=== PATIENT | female | born 1985 | race Caucasian/White ===

== ENCOUNTER 2019-09-04 13:27 | Emergency (ER) | payer OTHER, SELFPAY ==
[2019-09-04 13:34] VITALS: BP 133/75; PULSE 111; RESP 24; TEMP 37.4; O2SAT 100
--- NOTE | 2019-09-04 13:51 | DI.US.S_ITS ---
PROCEDURE: US PELVIC COMPLETE INDICATIONS: SEVERE PELVIC PAIN TECHNIQUE: Real-time scanning was performed of the pelvic organs, with image documentation. Additional endovaginal scanning was necessary due to incomplete visualization of the adnexal and endometrial structures by transabdominal scanning. COMPARISON: None. FINDINGS: Transabdominal scanning: Limited scanning through the kidneys shows no hydronephrosis. No pathologic free abdominal or pelvic fluid. Endovaginal scanning: Uterus: The uterus is normal in size and measures 7.5 x 3.1 x 4.5 cm. There is a small heterogeneous structure identified along the anterior wall of the uterus to the right of midline, which is hypoechoic compared to the adjacent parenchyma and is located within the central aspect of the myometrium, compatible with an intramural fibroid. No additional myometrial lesions are identified. A trilaminar appearance of the endometrium is identified, which measures up to 7 mm in maximal combined thickness. No significant fluid is seen within the endometrium. The cervix is unremarkable. Ovaries: The right ovary measures 3.9 x 2.3 x 3.4 cm, which is enlarged related to a simple appearing 2.9 cm right ovarian cyst. Blood flow is demonstrated to the right ovary. The left ovary is normal in size and appearance, containing small ovarian follicles. The left ovary measures 3.5 x 1.8 x 1.8 cm. No cystic or solid left ovarian lesions are identified. IMPRESSION: 1. Simple appearing small right ovarian cyst (2.9 cm). 2. Small intramural uterine fibroid. 3. Unremarkable left ovary. Dictated by: Je Michel M.D. on 09/04/2019 at 14:22 Approved by: Je Michel M.D. on 09/04/2019 at 14:24
[2019-09-04 14:30] LABS: Add Manual Diff / Slide Review NO; Basophils Absolute Auto 100 /uL (0-100); Basophils Percent Auto 0.6 % (0-2); Eosinophils Absolute Auto 100 /uL (0-450); Eosinophils Percent Auto 1.3 % (2-4); Hematocrit 37.4 % (36-46); Hemoglobin 12.9 g/dL (12.0-16.0); Lymphocytes Absolute Auto 2000 /uL (1100-4500); Lymphocytes Percent Auto 21.2 % (25-40); Mean Corpuscular HGB Conc 34.4 % (30-36); Mean Corpuscular Hemoglobin 29.6 PG (26-34); Mean Corpuscular Volume 86.1 fL (80-100); Monocytes Absolute Auto 600 /uL (0-900); Neutrophils Absolute Auto 6700 /uL (1500-7000); Neutrophils Percent Auto 70.9 % (50-75); Platelet Count 384 X10^3/uL (150-400); Red Blood Cell Count 4.35 X10^6/uL (4.0-5.2); Red Cell Distribution Width 12.9 % (11.6-14.8); White Blood Cell Count 9.5 X10^3/uL (4.5-11.0)
[2019-09-04] MEDS: SODIUM CHLORIDE 0.9% 1,000 ML 1000 ML IV (14:35)
[2019-09-04] MEDS: MORPHINE 4 MG/ML INJ IV ×2 (14:35→15:45)
[2019-09-04] MEDS: ONDANSETRON 4 MG/2 ML INJ IV (14:36)
[2019-09-04 14:42] LABS: Alanine Aminotransferase 19 IU/L (<35); Albumin 4.4 g/dL (3.5-5.0); Albumin Globulin Ratio 1.3 (1.0-2.8); Alkaline Phosphatase 64 U/L (38-126); Amylase 64 U/L (30-110); Aspartate Aminotransferase 35 IU/L (14-36); BUN Creatinine Ratio 21.3 (6-22); Bilirubin Total 0.3 mg/dL (0.2-1.3); Blood Urea Nitrogen 17 mg/dL (7-17); Calcium 9.8 mg/dL (8.4-10.2); Carbon Dioxide 26 mmol/L (22-32); Chloride 102 mmol/L (98-107); Estimated Glomerular Filt Rate > 60.0 mL/min (>60); Globulin 3.3 g/dL (1.7-4.1); Glucose 94 mg/dL (70-100); HEMOLYSIS < 15 (0-50); Lipase 89 U/L (23-300); Potassium 4.9 mmol/L (3.4-5.1); Sodium 138 mmol/L (137-145); Total Protein 7.7 g/dL (6.3-8.2)
[2019-09-04 14:45] VITALS: BP 118/96; PULSE 87; RESP 16; O2SAT 100
--- NOTE | 2019-09-04 14:51 | PC.NURSE ---
pt reports, extensive pelvic pain, multiple hemorrhagic ovarian cyst, laparoscopy done polyps removed. pt here due to abdominal bloating the last 3 days, pain mid lower abdominal worsen with the left side. denies fever,nausea or vomiting. +bm today. also reports, clear vaginal discharge, +sexually active with one partner (spouse). had ct last july dx with kidney stones, last u/s may dx with ovarian cyst.
--- NOTE | 2019-09-04 14:53 | ED_ITS ---
HPI - Abdominal Pain <CHERELLE Jasso - Last Filed: 09/04/19 19:15> General Chief Complaint: Abdominal Pain Stated Complaint: hx ov cyst/pain/ inflammed Time Seen by Provider: 09/04/19 13:35 Source: patient Mode of arrival: Ambulatory Limitations: no limitations History of Present Illness HPI narrative: The patient is a 33-year-old female of chronic pain, PTSD, hemorrhagic ovarian cyst who presents with a chief complaint of lower abdominal pain in her left lower quadrant and bloating sensation that has been going on for a year, worse over the past few days. She states she has been using her present for her neck pain to control her abdominal pain and it is not working. She complains of nausea, no fevers. She states she feels full quickly when she eats. Has some dysuria no urgency or frequency. States that her most recent imaging included a CT for a kidney stone at an outside facility in July of last year. She denies any chest pain or shortness of breath. She denies any possibility of sexually transmitted infections, vaginal discharge etcetera she [place]. She does complain of some sweats and chills but states that she thinks it's related to the Percocet. She took ibuprofen this morning as well. Related Data Home Medications Medication Instructions Recorded Confirmed methocarbamol 750 mg PO TID PRN 09/04/19 09/04/19 ondansetron 4 mg PO Q6HR PRN 09/04/19 09/04/19 oxycodone-acetaminophen 1 tab PO TID PRN 09/04/19 09/04/19 trazodone 150 mg PO BEDTIME 09/04/19 09/04/19 venlafaxine 75 mg PO DAILY 09/04/19 09/04/19 Allergies Allergy/AdvReac Type Severity Reaction Status Date / Time No Known Drug Allergies Allergy Verified 09/04/19 13:39 Review of Systems <CHERELLE Jasso - Last Filed: 09/04/19 19:15> Review of Systems Narrative: GENERAL: See HPI HEENT: Denies sinus pain, ear pain, sore throat, difficulty swallowing, dizziness. RESPIRATORY: Denies dyspnea, cough, wheezing, hemoptysis, sputum. CARDIOVASCULAR: Denies chest pain, palpitations, orthopnea, edema, GASTROINTESTINAL: See HPI : See HPI MUSCULOSKELETAL: denies weakness, joint pain, or bony pain SKIN: Denies rash, skin lesions, or other NEUROLOGIC: Denies weakness, headache, numbness, change in speech, confusion, seizures, incoordination. PSYCHIATRIC: No concerning psychosocial issues. 12 point review of systems is negative except for those stated above Exam <BARBARA Jasso-BC - Last Filed: 09/04/19 19:15> Narrative Exam Narrative: GENERAL: This is a well-nourished, well-developed patient, perseverative, tangential, teary with pressured speech HEAD: Atraumatic. Normocephalic. No temporal or scalp tenderness. EYES: Pupils equal round and reactive. Extraocular motions intact. No scleral icterus. No injection or drainage. ENT: Nose without bleeding, purulent drainage or septal hematoma. Throat without erythema, tonsillar hypertrophy or exudate. Uvula midline. Airway patent. NECK: Trachea midline. No JVD or lymphadenopathy. Supple, nontender, no menin geal signs. CARDIOVASCULAR: Regular rate and rhythm RESPIRATORY: Clear to auscultation. Breath sounds equal bilaterally. No wheezes, rales, or rhonchi. No cough. No increased respiratory effort. No accessory muscle use. Speaking full sentences. GASTROINTESTINAL: Abdomen soft,nondistended. No hepato-splenomegaly, or palpable masses. Pain to palpation suprapubic area left lower quadrant with no guarding. EXTREMITIES: No clubbing, cyanosis, or edema. No joint tenderness, effusion, or edema noted. BACK: Nontender without deformity or crepitance. No flank tenderness. NEURO: AOx3. SKIN: No rash or erythema on visible skin Initial Vital Signs Initial Vital Signs: Vital Signs Temperature 99.4 F 09/04/19 13:34 Pulse Rate 111 H 09/04/19 13:34 Respiratory Rate 24 09/04/19 13:34 Blood Pressure 133/75 09/04/19 13:34 Pulse Oximetry 100 09/04/19 13:34 <Raquel Mendoza DO - Last Filed: 09/07/19 07:02> Initial Vital Signs Initial Vital Signs: Vital Signs Temperature 99.4 F 09/04/19 13:34 Pulse Rate 111 H 09/04/19 13:34 Respiratory Rate 24 09/04/19 13:34 Blood Pressure 133/75 09/04/19 13:34 Pulse Oximetry 100 09/04/19 13:34 Course <Gabi SalinasBARBARA-BC - Last Filed: 09/04/19 19:15> Orders Ordered: Discontinued Medications Sodium Chloride (Normal Saline 0.9%) 1,000 mls @ 1,000 mls/hr IV BOLUS ONE Stop: 09/04/19 14:50 Last Infusion: 09/04/19 16:41 Dose: 0 mls/hr Documented by: Admin: 09/04/19 14:35 Dose: 1,000 mls/hr Documented by: JOEY Ketorolac Tromethamine (Toradol) 30 mg IV NOW ONE Stop: 09/04/19 17:16 Last Admin: 09/04/19 17:27 Dose: 30 mg Documented by: ERIC Ketorolac Tromethamine (Toradol 10mg Prepack) 1 bottle [facility] SEEINSTR ONE Stop: 09/04/19 17:16 Last Admin: 09/04/19 17:26 Dose: 1 bottle Documented by: ERIC Morphine Sulfate (Morphine) 4 mg IV NOW ONE Stop: 09/04/19 13:52 Last Admin: 09/04/19 14:35 Dose: 4 mg Documented by: JOEY Morphine Sulfate (Morphine) 4 mg IV NOW ONE Stop: 09/04/19 15:27 Last Admin: 09/04/19 15:45 Dose: 4 mg Documented by: ERIC Ondansetron HCl (Zofran) 4 mg IV NOW ONE Stop: 09/04/19 13:52 Last Admin: 09/04/19 14:36 Dose: 4 mg Documented by: JOEY Oxycodone/Acetaminophen (Endocet 5/325 Prepack) 1 bottle MISC SEEINSTR ONE Stop: 09/04/19 17:16 Last Admin: 09/04/19 17:26 Dose: 1 bottle Documented by: ERIC Consultations Consultation #1: Spoke with patient's PCP, Dr. Montiel who states that [place] appointment next week. She states that the patient does have chronic pain problems, and with small know that the patient is under a pain contract which she has the ability to refill tomorrow. Dr Montiel states at most she needs medication to get her through tomorrow if she needs any medication whatsoever upon discharge. Discussed plan with Dr. Montiel, no leukocytosis at this time, Dr. Montiel is in accordance with plan care. Time: 14:53 Vital Signs Vital signs: Vital Signs - 8 hr 09/04/19 13:34 09/04/19 14:45 09/04/19 14:54 Temperature 99.4 F Pulse Rate 111 H 87 83 Respiratory Rate 24 16 18 Blood Pressure 133/75 Blood Pressure [Right Arm] 118/96 H 118/96 H Pulse Oximetry 100 100 96 09/04/19 15:30 09/04/19 16:00 Temperature Pulse Rate 77 81 Respiratory Rate 16 16 Blood Pressure Blood Pressure [Right Arm] 108/76 114/85 Pulse Oximetry 99 100 <Raquel Mendoza DO - Last Filed: 09/07/19 07:02> Orders Ordered: Discontinued Medications Sodium Chloride (Normal Saline 0.9%) 1,000 mls @ 1,000 mls/hr IV BOLUS ONE Stop: 09/04/19 14:50 Last Infusion: 09/04/19 16:41 Dose: 0 mls/hr Documented by: Admin: 09/04/19 14:35 Dose: 1,000 mls/hr Documented by: JOEY Ketorolac Tromethamine (Toradol) 30 mg IV NOW ONE Stop: 09/04/19 17:16 Last Admin: 09/04/19 17:27 Dose: 30 mg Documented by: ERIC Ketorolac Tromethamine (Toradol 10mg Prepack) 1 bottle MISC SEEINSTR ONE Stop: 09/04/19 17:16 Last Admin: 09/04/19 17:26 Dose: 1 bottle Documented by: ERIC Morphine Sulfate (Morphine) 4 mg IV NOW ONE Stop: 09/04/19 13:52 Last Admin: 09/04/19 14:35 Dose: 4 mg Documented by: JOEY Morphine Sulfate (Morphine) 4 mg IV NOW ONE Stop: 09/04/19 15:27 Last Admin: 09/04/19 15:45 Dose: 4 mg Documented by: ERIC Ondansetron HCl (Zofran) 4 mg IV NOW ONE Stop: 09/04/19 13:52 Last Admin: 09/04/19 14:36 Dose: 4 mg Documented by: JOEY Oxycodone/Acetaminophen (Endocet 5/325 Prepack) 1 bottle MISC SEEINSTR ONE Stop: 09/04/19 17:16 Last Admin: 09/04/19 17:26 Dose: 1 bottle Documented by: ERIC Vital Signs Vital signs: Vital Signs - 8 hr 09/04/19 13:34 09/04/19 14:45 09/04/19 14:54 Temperature 99.4 F Pulse Rate 111 H 87 83 Respiratory Rate 24 16 18 Blood Pressure 133/75 Blood Pressure [Right Arm] 118/96 H 118/96 H Pulse Oximetry 100 100 96 09/04/19 15:30 09/04/19 16:00 Temperature Pulse Rate 77 81 Respiratory Rate 16 16 Blood Pressure Blood Pressure [Right Arm] 108/76 114/85 Pulse Oximetry 99 100 MDM - Abdominal Pain <BARBARA Jasso- - Last Filed: 09/04/19 19:15> Differential Diagnosis Differential diagnosis: Likely abdominal pain, constipation and endometriosis Lab Data Result diagrams: 09/04/19 14:25 09/04/19 14:25 Labs: Lab Results 09/04/19 09/04/19 Range/Units 14:25 14:25 WBC 9.5 (4.5-11.0) X10^3/uL RBC 4.35 (4.0-5.2) X10^6/uL Hgb 12.9 (12.0-16.0) g/dL Hct 37.4 (36-46) % MCV 86.1 (80-100) fL MCH 29.6 (26-34) PG MCHC 34.4 (30-36) % RDW 12.9 (11.6-14.8) % Plt Count 384 (150-400) X10^3/uL Neut % (Auto) 70.9 (50-75) % Lymph % (Auto) 21.2 L (25-40) % Kimble % (Auto) 6.0 (3-14) % Eos % (Auto) 1.3 L (2-4) % Baso % (Auto) 0.6 (0-2) % Neut # (Auto) 6700 (3502-7900) /uL Lymph # (Auto) 2000 (8852-1754) /uL Kimble # (Auto) 600 (0-900) /uL Eos # (Auto) 100 (0-450) /uL Baso # (Auto) 100 (0-100) /uL Sodium 138 (137-145) mmol/L Potassium 4.9 (3.4-5.1) mmol/L Chloride 102 (98-107) mmol/L Carbon Dioxide 26 (22-32) mmol/L BUN 17 (7-17) mg/dL Creatinine 0.80 (0.52-1.04) mg/dL Estimated GFR > 60.0 (>60) mL/min BUN/Creatinine Ratio 21.3 (6-22) Glucose 94 (70-100) mg/dL Calcium 9.8 (8.4-10.2) mg/dL Total Bilirubin 0.3 (0.2-1.3) mg/dL AST 35 (14-36) IU/L ALT 19 (<35) IU/L Alkaline Phosphatase 64 (38-126) U/L Total Protein 7.7 (6.3-8.2) g/dL Albumin 4.4 (3.5-5.0) g/dL Globulin 3.3 (1.7-4.1) g/dL Albumin/Globulin Ratio 1.3 (1.0-2.8) Amylase 64 (30-110) U/L Lipase 89 (23-300) U/L Point of care testing: Point of Care Testing Test Results Negative Urine Dip Bedside Urine Glucose Negative Bedside Urine Bilirubin - Negative Bedside Urine Ketone - Negative Urine Specific Hollis 1.020 Bedside Urine Occult Blood - Negative Bedside Urine pH 6.0 Bedside Urine Protein - Negative Bedside Urine Urobilinogen - Negative Bedside Urine Nitrite - Negative Bedside Urine Leukocytes - Negative Esterase Imaging Data CT scan - abdomen/pelvis: Radiologist's Impression: [address] [place] [id number] Scan Report Signed Patient: Jane PrideMR#: [id number] : 1985Acct:[id number] Age/Sex: 33 / FDate of Service: 09/04/19 Loc: ED Accession Number: [id number] Procedure: CT abdomen pelvis w con Ordering Provider: Gabi Salinas [facility]- PROCEDURE: CT ABDOMEN PELVIS W CON INDICATIONS: LLQ pain, chills TECHNIQUE: After the administration of oral and intravenous contrast, 5 mm thick sections acquired from the diaphragms to the symphysis. 5 mm thick coronal and sagittal reformats were performed. For radiation dose reduction, the following was used: automated exposure control, adjustment of mA and/or kV according to patient size. COMPARISON: None. FINDINGS: Image quality: Diagnostic. ABDOMEN: Lung bases: Lung bases are clear. Heart size is normal. Solid organs: Liver is normal in size and enhancement. A vague area of low-attenuation along the falciform ligament of the left hepatic lobe is felt to represent a focal area of fatty infiltration. No definable or definitive hepatic lesions are present. Gallbladder is normal in size without evidence of inflammation. Biliary system is non-dilated. Pancreas enhances normally. Spleen is normal in size and enhancement. No adrenal nodules. Kidneys are normal in size and enhancement, without hydronephrosis. Peritoneum and bowel: The stomach and duodenum are within normal limits. The small bowel loops are nondilated. There is a moderate to large amount of residual stool identified throughout the colon. No free fluid or loculated fluid collection is evident. There is no free air. The appendix is normal in size without surrounding inflammation. Nodes and vessels: No retroperitoneal or mesenteric adenopathy. Aorta and inferior vena cava are normal in caliber. Bones: No acute fractures or suspicious osseous lesions are evident. Age- appropriate degenerative changes of the lower lumbar facet joints are present. PELVIS: Genitourinary: Bladder wall thickness is normal. The right ovary is enlarged, related to a 2.5 cm right ovarian cyst. The left ovary and uterus appear to be unremarkable. Miscellaneous: No inguinal hernias or adenopathy. No free fluid located fluid collection is evident. Bones: No suspicious bony lesions. No acute pelvic fractures. IMPRESSION: 1. No definite acute abnormality of the left lower quadrant. There is no evidence of diverticulitis. 2. Normal appendix. 3. Right ovarian cyst. 4. The possible constipation. No bowel obstruction. Dictated by: Je Michel M.D. on 09/04/2019 at 15:51 Approved by: Je Michel M.D. on 09/04/2019 at 15:56 US - SHOP COORDINATOR: Radiologist's Impression: [address] [place] [id number] Ultrasound Report Signed Patient: Jane Pride#: [id number] : 1985Acct:[id number] Age/Sex: 33 / FDate of Service: 09/04/19 Loc: ED Accession Number: [id number] Procedure: US pelvic complete Ordering Provider: Gabi Salinas PROCEDURE: US PELVIC COMPLETE INDICATIONS: SEVERE PELVIC PAIN TECHNIQUE: Real-time scanning was performed of the pelvic organs, with image documentation. Additional endovaginal scanning was necessary due to incomplete visualization of the adnexal and endometrial structures by transabdominal scanning. COMPARISON: None. FINDINGS: Transabdominal scanning: Limited scanning through the kidneys shows no hydronephrosis. No pathologic free abdominal or pelvic fluid. Endovaginal scanning: Uterus: The uterus is normal in size and measures 7.5 x 3.1 x 4.5 cm. There is a small heterogeneous structure identified along the anterior wall of the uterus to the right of midline, which is hypoechoic compared to the adjacent parenchyma and is located within the central aspect of the myometrium, compatible with an intramural fibroid. No additional myometrial lesions are identified. A trilaminar appearance of the endometrium is identified, which measures up to 7 mm in maximal combined thickness. No significant fluid is seen within the endometrium. The cervix is unremarkable. Ovaries: The right ovary measures 3.9 x 2.3 x 3.4 cm, which is enlarged related to a simple appearing 2.9 cm right ovarian cyst. Blood flow is demonstrated to the right ovary. The left ovary is normal in size and appearance, containing small ovarian follicles. The left ovary measures 3.5 x 1.8 x 1.8 cm. No cystic or solid left ovarian lesions are identified. IMPRESSION: 1. Simple appearing small right ovarian cyst (2.9 cm). 2. Small intramural uterine fibroid. 3. Unremarkable left ovary. Dictated by: Je Michel M.D. on 09/04/2019 at 14:22 Approved by: Je Michel M.D. on 09/04/2019 at 14:24 MDM Narrative Medical decision making narrative: The patient is a 33-year-old female who presents with a chief complaint of abdominal pain. She has a significant history of hemorrhagic cyst. Ultrasound was done and showed a right-sided ovarian cyst, and a fibroid in her uterus. Given the patient's significant pain, recommendations from primary care provider, CT with contrast was obtained. This had no acute findings. As per my discussion with the patient's primary care provider patient was given take-home packs and small amount of pain medication to help get her through until her refills are available tomorrow. 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 Patient has no questions or concerns upon discharge and states understanding of return precautions as well as follow- up care. <Raquel Mendoza, DO - Last Filed: 09/07/19 07:02> Lab Data Labs: Lab Results 09/04/19 09/04/19 Range/Units 14:25 14:25 WBC 9.5 (4.5-11.0) X10^3/uL RBC 4.35 (4.0-5.2) X10^6/uL Hgb 12.9 (12.0-16.0) g/dL Hct 37.4 (36-46) % MCV 86.1 (80-100) fL MCH 29.6 (26-34) PG MCHC 34.4 (30-36) % RDW 12.9 (11.6-14.8) % Plt Count 384 (150-400) X10^3/uL Neut % (Auto) 70.9 (50-75) % Lymph % (Auto) 21.2 L (25-40) % Kimble % (Auto) 6.0 (3-14) % Eos % (Auto) 1.3 L (2-4) % Baso % (Auto) 0.6 (0-2) % Neut # (Auto) 6700 (6564-2684) /uL Lymph # (Auto) 2000 (2568-2143) /uL Kimble # (Auto) 600 (0-900) /uL Eos # (Auto) 100 (0-450) /uL Baso # (Auto) 100 (0-100) /uL Sodium 138 (137-145) mmol/L Potassium 4.9 (3.4-5.1) mmol/L Chloride 102 (98-107) mmol/L Carbon Dioxide 26 (22-32) mmol/L BUN 17 (7-17) mg/dL Creatinine 0.80 (0.52-1.04) mg/dL Estimated GFR > 60.0 (>60) mL/min BUN/Creatinine Ratio 21.3 (6-22) Glucose 94 (70-100) mg/dL Calcium 9.8 (8.4-10.2) mg/dL Total Bilirubin 0.3 (0.2-1.3) mg/dL AST 35 (14-36) IU/L ALT 19 (<35) IU/L Alkaline Phosphatase 64 (38-126) U/L Total Protein 7.7 (6.3-8.2) g/dL Albumin 4.4 (3.5-5.0) g/dL Globulin 3.3 (1.7-4.1) g/dL Albumin/Globulin Ratio 1.3 (1.0-2.8) Amylase 64 (30-110) U/L Lipase 89 (23-300) U/L Point of care testing: Point of Care Testing Test Results Negative Urine Dip Bedside Urine Glucose Negative Bedside Urine Bilirubin - Negative Bedside Urine Ketone - Negative Urine Specific Hollis 1.020 Bedside Urine Occult Blood - Negative Bedside Urine pH 6.0 Bedside Urine Protein - Negative Bedside Urine Urobilinogen - Negative Bedside Urine Nitrite - Negative Bedside Urine Leukocytes - Negative Esterase Discharge Plan Departure Patient Disposition: Home Clinical Impression: Cyst of right ovary Abdominal pain Qualifiers: Abdominal location: generalized Qualified Code(s): R10.84 - Generalized abdominal pain Fibroid, uterine Qualifiers: Uterine leiomyoma location: unspecified location Qualified Code(s): D25.9 - Leiomyoma of uterus, unspecified Discharge Date/Time: 09/04/19 17:43 Instructions: Facts About Fibroids, DI for Uterine Fibroids, DI for Ovarian Cyst, DI for Abdominal Pain-Adult Activity Restrictions/Additional Instructions: As discussed her imaging shows a small fibroid and 2.9 cm simple right ovarian cyst. We have given you take-home pack to get you through until you can refill her prescription in the morning Please follow-up with primary care provider in the next few days. I suggest following up with OBGYN as discussed. Please come back to the emergency department for any acute concerns such as inability keep down fluids, abdominal pain with fever etcetera. Prescriptions: No Action ondansetron 4 mg tablet,disintegrating 4 mg PO Q6HR PRN (Reason: Nausea) RF: 0 venlafaxine 75 mg capsule,extended release 24hr 75 mg PO DAILY RF: 0 trazodone 50 mg tablet 150 mg PO BEDTIME RF: 0 oxycodone-acetaminophen 10-325 mg tablet 1 tab PO TID PRN (Reason: Pain (Scale Score 7-10)) RF: 0 methocarbamol 750 mg tablet 750 mg PO TID PRN (Reason: Muscle Spasm) RF: 0 Referrals: Raj Parra MD [Primary Care Provider] - Cherri Montiel DO [Non-Staff] -
[2019-09-04 14:54] VITALS: BP 118/96; PULSE 83; RESP 18; O2SAT 96
[2019-09-04 15:30] VITALS: BP 108/76; PULSE 77; RESP 16; O2SAT 99
--- NOTE | 2019-09-04 15:37 | DI.CT.S_ITS ---
PROCEDURE: CT ABDOMEN PELVIS W CON INDICATIONS: LLQ pain, chills TECHNIQUE: After the administration of oral and intravenous contrast, 5 mm thick sections acquired from the diaphragms to the symphysis. 5 mm thick coronal and sagittal reformats were performed. For radiation dose reduction, the following was used: automated exposure control, adjustment of mA and/or kV according to patient size. COMPARISON: None. FINDINGS: Image quality: Diagnostic. ABDOMEN: Lung bases: Lung bases are clear. Heart size is normal. Solid organs: Liver is normal in size and enhancement. A vague area of low-attenuation along the falciform ligament of the left hepatic lobe is felt to represent a focal area of fatty infiltration. No definable or definitive hepatic lesions are present. Gallbladder is normal in size without evidence of inflammation. Biliary system is non-dilated. Pancreas enhances normally. Spleen is normal in size and enhancement. No adrenal nodules. Kidneys are normal in size and enhancement, without hydronephrosis. Peritoneum and bowel: The stomach and duodenum are within normal limits. The small bowel loops are nondilated. There is a moderate to large amount of residual stool identified throughout the colon. No free fluid or loculated fluid collection is evident. There is no free air. The appendix is normal in size without surrounding inflammation. Nodes and vessels: No retroperitoneal or mesenteric adenopathy. Aorta and inferior vena cava are normal in caliber. Bones: No acute fractures or suspicious osseous lesions are evident. Age-appropriate degenerative changes of the lower lumbar facet joints are present. PELVIS: Genitourinary: Bladder wall thickness is normal. The right ovary is enlarged, related to a 2.5 cm right ovarian cyst. The left ovary and uterus appear to be unremarkable. Miscellaneous: No inguinal hernias or adenopathy. No free fluid located fluid collection is evident. Bones: No suspicious bony lesions. No acute pelvic fractures. IMPRESSION: 1. No definite acute abnormality of the left lower quadrant. There is no evidence of diverticulitis. 2. Normal appendix. 3. Right ovarian cyst. 4. The possible constipation. No bowel obstruction. Dictated by: Je Michel M.D. on 09/04/2019 at 15:51 Approved by: Je Michel M.D. on 09/04/2019 at 15:56
[2019-09-04 16:00] VITALS: BP 114/85; PULSE 81; RESP 16; O2SAT 100
[2019-09-04] MEDS: KETOROLAC 10MG PREPACK 1 BOTTLE MISC (17:26)
[2019-09-04] MEDS: OXYCODONE/APAP 5/325 PREPACK 1 BOTTLE MISC (17:26)
[2019-09-04] MEDS: KETOROLAC 60 MG/2 ML VIAL 30 MG IV (17:27)
== END 2019-09-04 17:43 | disposition home or self-care (01) ==
PROVIDERS: Emergency Provider Nurse Practitioner Family
DX: N83.201 Unspecified ovarian cyst, right side (principal); D25.1 Intramural leiomyoma of uterus; R10.84 Generalized abdominal pain
CPT/HCPCS: 36415; 74177; 76830; 76856; 80053; 81003; 81025; 82150; 83690; 85025; 96361; 96374; 96375; 96376; 99285; J1885; J2270; J2405; Q9967